=== PATIENT | male | born 1965 | race Caucasian/White ===

== ENCOUNTER 2017-05-29 22:05 | Emergency (ER) ==
[2017-05-29 22:13] VITALS: BP 139/70; TEMP 97.4; BMI 25.7
--- NOTE | 2017-05-29 22:16 | ED.PDOC ---
General ED Provider: Dr. WASHINGTON OLSEN Chief Complaint: Bite Stated Complaint: While playing with dog it bite him on the right ear. Dog is Immunized, provoked dog. available for Observation. Time Seen by Physician: 22:15 Mode of Arrival: Walk-In Information Source: Patient Nursing and Triage Documentation Reviewed and Agree: Yes Skin Complaint Exam - Skin/Soft Tissue Complaint/Exam Symptoms Are: Still present Timing: Constant Initial Severity: Mild Current Severity: Mild Character: Reports: Redness, Swelling, Raised Aggravating: Reports: Touch Alleviating: Reports: None Related Surgical History: Reports: None Skin Findings: Present: Erythema (cuts to right ear.) Differential Diagnoses: Other (laceration) Review of Systems - Review Of Systems Constitutional: Reports: No symptoms Eyes: Reports: No symptoms Ears, Nose, Mouth, Throat: Reports: No symptoms Respiratory: Reports: No symptoms Cardiac: Reports: No symptoms GI: Reports: No symptoms : Reports: No symptoms Musculoskeletal: Reports: No symptoms Skin: Reports: No symptoms Neurological: Reports: No symptoms Endocrine: Reports: No symptoms Hematologic/Lymphatic: Reports: No symptoms All Other Systems: Reviewed and Negative Past Medical History - Past Medical History Previously Healthy: Yes Endocrine: Reports: None Cardiovascular: Reports: None Respiratory: Reports: None Hematological: Reports: None Gastrointestinal: Reports: None Genitourinary: Reports: None Neuro/Psych: Reports: None Musculoskeletal: Reports: None Cancer: Reports: None - Surgical History General Surgical History: Reports: None - Family History Family History: Reports: None - Social History Smoking Status: Never smoker Hx Substance Use: No Alcohol Screening: Occasionally - Immunizations Tetanus Shot up to Date: No Physical Exam - Physical Exam Appearance: Well-appearing, No pain distress, Well-nourished Eyes: VERONICA, EOMI, Conjunctiva clear ENT: Ears normal (rt ear has laceration, can see Cartilage.), Nose normal, Oropharynx normal Respiratory: Airway patent, Breath sounds clear, Breath sounds equal, Respirations nonlabored Cardiovascular: RRR, Pulses normal, No rub, No murmur GI/: Soft, Nontender, No masses, Bowel sounds normal, No Organomegaly Musculoskeletal: Normal strength, ROM intact, No edema, No calf tenderness Skin: Warm, Dry, Normal color Neurological: Sensation intact, Motor intact, Reflexes intact, Cranial nerves intact, Alert, Oriented Psychiatric: Affect appropriate, Mood appropriate Critical Care Note - Critical Care Note Total Time (mins): 0 Course - Course Vital Signs: Temp Pulse Resp BP Pulse Ox 05/29/17 22:06 97.4 F L 55 L 18 139/70 98 Departure - Departure Time of Disposition: 22:23 Disposition: HOME SELF-CARE Discharge Problem: Dog bite Qualifiers: Encounter type: initial encounter Qualified Code(s): W54.0XXA - Bitten by dog, initial encounter Laceration of ear lobe Qualifiers: Encounter type: initial encounter Laterality: right Qualified Code(s): S01.311A - Laceration without foreign body of right ear, initial encounter Instructions: Laceration (ED), Facial Laceration (ED) Condition: Good Pt referred to PMD for follow-up: Yes Additional Instructions: Sammy sporin BID Needs f/u with PMD Risk of infection discussed. OBSERVE DOG FOR ABNORMAL BEHAVIOUR,. IF ANY PLEASE CALL ANIMAL CONTROL. Prescriptions: Amoxicillin/Potassium Clav [Augmentin 500-125 mg Tab] 1 tab PO Q8HR #21 tablet Hydrocodone/Acetaminophen [Ephrata 5-325 Tablet] 1 tab PO TID PRN #12 tablet PRN Reason: PAIN Allergies/Adverse Reactions: Allergies No Known Drug Allergies Adverse Reaction (Verified 05/29/17 22:13) Home Medications: Ambulatory Orders Amoxicillin/Potassium Clav [Augmentin 500-125 mg Tab] 1 tab PO Q8HR #21 tablet 05/29/17 Hydrocodone/Acetaminophen [Ephrata 5-325 Tablet] 1 tab PO TID PRN #12 tablet 05/29 Rosuvastatin Calcium [Crestor] 5 mg PO BEDTIME 05/29/17 Disposition Discussed With: Patient, Family
[2017-05-29] MEDS ORDERED: MORPHINE 2 MG/ML SYRINGE IM STA (22:21)
[2017-05-29] MEDS ORDERED: ZOFRAN 4 MG/2 ML IM STA (22:21)
[2017-05-29] MEDS ORDERED: AUGMENTIN 500-125 MG TAB PO STA (22:21)
[2017-05-29] MEDS ORDERED: BOOSTRIX IM ONE (22:45)
== END 2017-05-29 23:41 | disposition home or self-care (01) ==
LOC: ED 22:05
DX: S01.351A Open bite of right ear, initial encounter (principal); W54.0XXA Bitten by dog, initial encounter
CPT/HCPCS: 90471; 90715; 99283